=== PATIENT | male | born 1945 | race Caucasian/White ===

== ENCOUNTER 2020-04-25 08:24 | Inpatient (IN) ==
[2020-04-25] MEDS ORDERED: *HR* HYDROcodone/Acet 5/325 mg TABLET PO ONE (08:36)
[2020-04-25 08:52] LABS: Basophils % 0.2 %; Eosinophils # 0.1 K/mcL (0.0-0.6); Eosinophils % 0.4 %; Hematocrit 34.3 % (37.5-50.1); Hemoglobin 11.3 g/dL (12.9-16.9); Immature Granulocytes % 0.4 % (0-4); Lymphocytes % 8.9 %; Mean Corpuscular HGB Conc 32.9 g/dL (31.6-35.5); Mean Corpuscular Hemoglobin 30.2 pg (28.0-33.3); Mean Corpuscular Volume 91.7 fL (83.0-100.0); Mean Platelet Volume 10.1 fL (9.4-12.4); Monocytes # 0.7 K/mcL (0.0-1.3); Monocytes % 6.5 %; Neutrophils # 9.5 K/mcL (1.6-8.9); Platelet Count 283 K/mcL (140-400); Red Blood Count 3.74 M/mcL (4.19-5.50); Red Cell Distribution Width 12.6 % (11.5-14.5); Segmented Neutrophils % 83.6 %; White Blood Count 11.3 K/mcL (4.3-11.1)
[2020-04-25 08:54] LABS: INR 2.8; Prothrombin Time 31.9 Seconds (9.4-12.1)
[2020-04-25 09:07] LABS: Albumin 4.2 g/dL (3.5-5.7); Albumin/Globulin Ratio 1.5 (1.1-2.2); Bilirubin,Direct 0.1 mg/dL (0.0-0.2); Bilirubin,Indirect 0.3 mg/dL (0.0-1.0); Bilirubin,Total 0.4 mg/dL (0.3-1.0); Calcium 9.4 mg/dL (8.6-10.3); Globulin 2.8 g/dL (2.4-3.5); Potassium 3.5 mEq/L (3.5-5.1)
[2020-04-25] MEDS ORDERED: Naloxone 0.4 MG/ML INJ IVP PRN (09:25)
[2020-04-25] MEDS ORDERED: *HR* HYDROcodone/Acet 5/325 mg TABLET PO PRN (09:27)
[2020-04-25 09:37] LABS: Bilirubin,Urine Negative (Negative); Blood,Urine Moderate (Negative); Clarity,Urine Clear (Clear); Color,Urine Light-Yellow (Yellow); Glucose,Urine (UA) Normal (Normal); Ketones,Urine Negative (Negative); Leukocyte Esterase,Urine Negative (Negative); Nitrite,Urine Negative (Negative); Protein,Urine Negative (Neg-Trace); RBC,Urine 15-30 per hpf (0-3); Squamous Epithelial Cell,Urine Few per hpf (None-Few); Urobilinogen,Urine Normal (Normal); WBC,Urine 0-3 per hpf (0-3)
[2020-04-25] MEDS ORDERED: 0.9 % Sodium Chloride 500 ML IVC SCH (12:15)
[2020-04-25] MEDS: DilTIAZem CD (24hr) 240 MG CAP.ER.24H PO SCH (17:54)
[2020-04-25] MEDS ORDERED: *HR* Warfarin 4 MG TABLET PO ONE (18:00)
[2020-04-25] MEDS ORDERED: Warfarin perPT PO PRN (18:00)
[2020-04-25] MEDS: Dorzolamide/Timolol OPTH 10 ML BOTTLE BOTH EYES SCH (22:41)
[2020-04-25] MEDS: Latanoprost 2.5 ML BOTTLE BOTH EYES SCH (22:41)
[2020-04-26] MEDS: Acetaminophen 325 MG TABLET PO PRN ×2 (00:43→21:01)
[2020-04-26 02:26] LABS: INR 3.5; Prothrombin Time 39.3 Seconds (9.4-12.1)
[2020-04-26 02:39] LABS: Calcium 8.7 mg/dL (8.6-10.3)
[2020-04-26 06:03] LABS: Immature Granulocytes % 0.4 % (0-4); Mean Corpuscular HGB Conc 32.5 g/dL (31.6-35.5); Mean Corpuscular Hemoglobin 29.7 pg (28.0-33.3); Mean Corpuscular Volume 91.5 fL (83.0-100.0); Mean Platelet Volume 11.1 fL (9.4-12.4); Platelet Count 261 K/mcL (140-400); Red Blood Count 3.06 M/mcL (4.19-5.50); Red Cell Distribution Width 12.7 % (11.5-14.5); Segmented Neutrophils % 80.7 %; White Blood Count 11.3 K/mcL (4.3-11.1)
[2020-04-26 06:04] LABS: Basophils % 0.1 %; Eosinophils % 0.1 %; Lymphocytes # 1.2 K/mcL (0.6-4.6); Lymphocytes % 10.4 %; Monocytes # 0.9 K/mcL (0.0-1.3); Monocytes % 8.3 %; Neutrophils # 9.1 K/mcL (1.6-8.9)
[2020-04-26 06:09] LABS: Hemoglobin 9.1 g/dL (12.9-16.9)
[2020-04-26] MEDS ORDERED: NON-FORMULARY MEDICATION 1 EACH EACH (Ezetimibe [Zetia] 10 MG) PO SCH (09:00)
[2020-04-26] MEDS ORDERED: [UNRECOGNIZED DRUG - OTHER] PO SCH (09:00)
[2020-04-26] MEDS: DilTIAZem CD (24hr) 240 MG CAP.ER.24H PO SCH (11:24)
[2020-04-26] MEDS: Ringers Solution, Lactated 1,000 ML IVC SCH (11:24)
[2020-04-26] MEDS: Dorzolamide/Timolol OPTH 10 ML BOTTLE BOTH EYES SCH ×2 (11:25→20:57)
[2020-04-26] MEDS: Finasteride 5 MG TABLET PO SCH (11:25)
[2020-04-26] MEDS: Cholecalciferol (D-3) 1,000 UNIT (25MCG) TABLET PO SCH (11:25)
[2020-04-26] MEDS: Latanoprost 2.5 ML BOTTLE BOTH EYES SCH (20:57)
[2020-04-27] MEDS: Ringers Solution, Lactated 1,000 ML IVC SCH ×2 (01:25→17:31)
[2020-04-27 02:22] LABS: Basophils % 0.1 %; Eosinophils # 0.1 K/mcL (0.0-0.6); Eosinophils % 0.8 %; Hematocrit 23.2 % (37.5-50.1); Hemoglobin 7.8 g/dL (12.9-16.9); Immature Granulocytes % 0.4 % (0-4); Lymphocytes # 1.6 K/mcL (0.6-4.6); Lymphocytes % 16.4 %; Mean Corpuscular HGB Conc 33.6 g/dL (31.6-35.5); Mean Corpuscular Hemoglobin 30.6 pg (28.0-33.3); Mean Platelet Volume 10.7 fL (9.4-12.4); Monocytes # 0.8 K/mcL (0.0-1.3); Monocytes % 8.8 %; Platelet Count 233 K/mcL (140-400); Red Blood Count 2.55 M/mcL (4.19-5.50); Red Cell Distribution Width 12.5 % (11.5-14.5); Segmented Neutrophils % 73.5 %; White Blood Count 9.5 K/mcL (4.3-11.1)
[2020-04-27 02:23] LABS: INR 2.3; Prothrombin Time 26.1 Seconds (9.4-12.1)
[2020-04-27 02:43] LABS: Calcium 8.5 mg/dL (8.6-10.3); Potassium 2.9 mEq/L (3.5-5.1)
[2020-04-27 03:04] LABS: Folate 11.2 ng/mL (3.0-16.0)
[2020-04-27] MEDS ORDERED: Cyanocobalamin (B-12) 1,000 MCG/ML VIAL SQ ONE (08:28)
[2020-04-27] MEDS ORDERED: 0.9 % Sodium Chloride 250 ML IVC SCH (08:30)
[2020-04-27] MEDS: DilTIAZem CD (24hr) 240 MG CAP.ER.24H PO SCH (09:00)
[2020-04-27] MEDS: Finasteride 5 MG TABLET PO SCH (09:00)
[2020-04-27] MEDS: Cholecalciferol (D-3) 1,000 UNIT (25MCG) TABLET PO SCH (09:00)
[2020-04-27] MEDS: Dorzolamide/Timolol OPTH 10 ML BOTTLE BOTH EYES SCH ×2 (09:01→19:23)
[2020-04-27] MEDS ORDERED: *HR* Warfarin 7.5 MG TABLET PO ONE (18:00)
[2020-04-27] MEDS: Latanoprost 2.5 ML BOTTLE BOTH EYES SCH (19:24)
[2020-04-27] MEDS: Acetaminophen 325 MG TABLET PO PRN (20:22)
[2020-04-28 05:39] LABS: INR 2.2; Prothrombin Time 25.3 Seconds (9.4-12.1)
[2020-04-28 05:40] LABS: Basophils % 0.4 %; Eosinophils # 0.3 K/mcL (0.0-0.6); Eosinophils % 2.9 %; Hematocrit 26.2 % (37.5-50.1); Hemoglobin 8.8 g/dL (12.9-16.9); Immature Granulocytes % 0.5 % (0-4); Lymphocytes # 1.6 K/mcL (0.6-4.6); Lymphocytes % 14.4 %; Mean Corpuscular HGB Conc 33.6 g/dL (31.6-35.5); Mean Corpuscular Volume 89.4 fL (83.0-100.0); Mean Platelet Volume 10.6 fL (9.4-12.4); Monocytes # 0.9 K/mcL (0.0-1.3); Monocytes % 8.6 %; Neutrophils # 7.9 K/mcL (1.6-8.9); Platelet Count 263 K/mcL (140-400); Red Blood Count 2.93 M/mcL (4.19-5.50); Red Cell Distribution Width 13.9 % (11.5-14.5); Segmented Neutrophils % 73.2 %; White Blood Count 10.8 K/mcL (4.3-11.1)
[2020-04-28 05:50] LABS: BUN/Creatinine Ratio 19 (6-26); Blood Urea Nitrogen 20 mg/dL (8-23); Calcium 8.5 mg/dL (8.6-10.3); Carbon Dioxide 29 mEq/L (23-29); Chloride 107 mEq/L (98-107); Glucose 110 mg/dL (70-105); Osmolality,Calculated 297 (280-300); Potassium 2.9 mEq/L (3.5-5.1); Sodium 142 mEq/L (136-145); eGFR For African Americans > 60 (> 60); eGFR For Non-African Americans > 60 (> 60)
[2020-04-28] MEDS: Ringers Solution, Lactated 1,000 ML IVC SCH (06:10)
[2020-04-28] MEDS: Finasteride 5 MG TABLET PO SCH (08:05)
[2020-04-28] MEDS: Cholecalciferol (D-3) 1,000 UNIT (25MCG) TABLET PO SCH (08:05)
[2020-04-28] MEDS: Dorzolamide/Timolol OPTH 10 ML BOTTLE BOTH EYES SCH ×2 (08:05→22:10)
[2020-04-28] MEDS: DilTIAZem CD (24hr) 240 MG CAP.ER.24H PO SCH (08:05)
[2020-04-28] MEDS ORDERED: 0.9 % Sodium Chloride w KCl 40 MEQ/1,000 ML MLS IVC SCH (08:30)
[2020-04-28] MEDS ORDERED: *HR* Warfarin 4 MG TABLET PO ONE (18:00)
[2020-04-28] MEDS: Latanoprost 2.5 ML BOTTLE BOTH EYES SCH (22:10)
[2020-04-29 06:26] LABS: Basophils # 0.1 K/mcL (0.0-0.2); Basophils % 0.5 %; Eosinophils # 0.5 K/mcL (0.0-0.6); Eosinophils % 4.4 %; Hematocrit 25.4 % (37.5-50.1); Hemoglobin 8.9 g/dL (12.9-16.9); Immature Granulocytes % 0.5 % (0-4); Lymphocytes # 1.5 K/mcL (0.6-4.6); Lymphocytes % 12.3 %; Mean Corpuscular Hemoglobin 31.3 pg (28.0-33.3); Mean Corpuscular Volume 89.4 fL (83.0-100.0); Mean Platelet Volume 10.3 fL (9.4-12.4); Neutrophils # 8.9 K/mcL (1.6-8.9); Platelet Count 309 K/mcL (140-400); Red Blood Count 2.84 M/mcL (4.19-5.50); Red Cell Distribution Width 13.3 % (11.5-14.5); Segmented Neutrophils % 74.3 %; White Blood Count 11.9 K/mcL (4.3-11.1)
[2020-04-29 06:28] LABS: Prothrombin Time 34.1 Seconds (9.4-12.1)
[2020-04-29 06:44] LABS: BUN/Creatinine Ratio 17 (6-26); Blood Urea Nitrogen 15 mg/dL (8-23); Calcium 8.3 mg/dL (8.6-10.3); Carbon Dioxide 26 mEq/L (23-29); Chloride 109 mEq/L (98-107); Glucose 114 mg/dL (70-105); Osmolality,Calculated 292 (280-300); Potassium 3.2 mEq/L (3.5-5.1); Sodium 140 mEq/L (136-145); eGFR For African Americans > 60 (> 60); eGFR For Non-African Americans > 60 (> 60)
[2020-04-29] MEDS: Finasteride 5 MG TABLET PO SCH (08:47)
[2020-04-29] MEDS: DilTIAZem CD (24hr) 240 MG CAP.ER.24H PO SCH (08:48)
[2020-04-29] MEDS: Cholecalciferol (D-3) 1,000 UNIT (25MCG) TABLET PO SCH (08:48)
[2020-04-29] MEDS: Dorzolamide/Timolol OPTH 10 ML BOTTLE BOTH EYES SCH (08:49)
[2020-04-29 10:20] VITALS: BP 128/76
== END 2020-04-29 12:45 | disposition home or self-care (01) | DRG 699 ==
LOC: 3ANU 08:24 → EMEROOARM 08:24 → 3ANU 10:14 → SUATTDRO 04-26 15:46
PROVIDERS: ADMIT Internal Medicine; ATTEND Internal Medicine